=== PATIENT | female | born 1980 | race African-American/Black ===

== ENCOUNTER 2022-08-14 13:54 | Emergency (ER) | payer OTHER ==
[~2022-08-14] VITALS: Ht 157.5 cm; Wt 124.6 kg
[2022-08-14 13:56] VITALS: BP 156/85; TEMP 98.9; O2SAT 98
[2022-08-14] MEDS ORDERED: OCUF0.25 OP (16:09)
== END 2022-08-14 16:33 | disposition home or self-care (01) ==
LOC: M ED 13:54
DX: H10.9 Unspecified conjunctivitis (principal); I10 Essential (primary) hypertension; Z88.5 Allergy status to narcotic agent